=== PATIENT | male | born 1970 | race Caucasian/White ===

== ENCOUNTER 2017-03-17 15:15 | Emergency (ER) | payer OTHER ==
--- NOTE | 2017-03-17 15:29 | EDPHY ---
H & P Time Seen by Provider: 03/17/17 15:25 HPI/ROS: CHIEF COMPLAINT: Confusion HISTORY OF PRESENT ILLNESS: Patient is a 46-year-old male with history of traumatic brain injury and epilepsy who presents emergency department with confusion. Per EMS the patient was found in the parking lot at his work confused. There is no witnessed seizure activity. No witnessed or reported trauma. Patient states the patient is improved at this time and has no complaints. Patient states he has a history of petit mal seizures. This is a typical presentation for his seizures. He has been taking his medication, carbamazepine , regularly. He has no complaints at this time. No headache or neck pain. No reported trauma. Patient denies feeling confused. No recent illness REVIEW OF SYSTEMS: My complete review of systems is negative except as mentioned in the HPI. Past Medical/Surgical History: Includes traumatic brain injury, epilepsy Social History: Patient denies drugs or alcohol. Physical Exam: Vitals noted GENERAL: Well-appearing, in no acute distress, alert. HEAD: No evidence of trauma. EYES: PERRLA, EOMI, normal to inspection. ENT: Airway intact, no dental or oral injury, no malocclusion, no hemotympanum , normal external examination. NECK: The trachea is midline. There is no crepitus. The C-spine is nontender. NEXUS criteria is negative (no midline tenderness, no distracting injury, no altered mental status, no recent alcohol use, no focal neurologic deficit). RESPIRATORY: Clear to auscultation bilaterally, no rales, rhonchi or wheezing. There is no crepitus or palpable rib fractures. CVS: Regular rate and rhythm, no rubs, murmurs, or gallops. ABDOMEN: Soft, nontender, nondistended, normal bowel sounds, no bruising or abrasions. Pelvis: Stable. No tenderness palpation. Hips full range of motion. BACK: Normal to inspection, no spinal tenderness, no spinal step off, no notable bruising or abrasions. SKIN: Normal color, warm, dry. No pallor or diaphoresis. EXTREMITIES: Right upper extremity: Atraumatic. No visible signs of trauma. No tenderness palpation. Neurovascular intact distally. Left upper extremity: Atraumatic. No visible signs of trauma. No tenderness palpation. Neurovascular intact distally. Right lower extremity: Atraumatic. No visible signs of trauma. No tenderness palpation. Neurovascular intact distally. Left lower extremity: Atraumatic. No visible signs of trauma. No tenderness palpation. Neurovascular intact distally. Atraumatic, neurovascularly intact distally in all extremities, pelvis is stable , hips with full range of motion, moves all extremities freely. NEURO/PSYCH: Higher functions: Alert and Oriented x3. Normal speech and cognition. Normal mood and affect. Cranial nerves: Normal as tested. Cerebellar: Normal as tested. Good finger to nose, good [id number], normal gait. Peripheral exam: Normal motor exam. Normal sensation. Normal reflexes. Constitutional: Initial Vital Signs Temperature (C) 36.8 C 03/17/17 15:30 Heart Rate 72 03/17/17 15:30 Respiratory Rate 14 03/17/17 15:30 Blood Pressure 117/73 03/17/17 15:30 O2 Sat (%) 96 03/17/17 15:30 O2 Delivery Mode Room Air Allergies/Adverse Reactions: No Known Allergies Allergy (Unverified 03/17/17 15:29) Home Medications: Medication Instructions Recorded Keppra 03/17/17 Tegretol 03/17/17 Medical Decision Making ED Course/Re-evaluation: I met EMS on arrival in took report from the radiologic technology instructor. The patient had normal blood glucose. The patient has no complaints at this time. Patient is alert and oriented. Plan was to observe in the emergency department. I do not feel he needs imaging or laboratory studies at the time of his arrival. 1545: Patient had a petite mal type seizure in the emergency department. Nursing staff witnessed a seizure in stated the patient "froze." I went rechecked the patient immediately. When I arrived in the room the patient was no longer seizing. He did seem slightly confused. I discussed the case with Dr. Burger who taken report from Dr. Ibarra. Per Dr. Ibarra the patient has recently decreased his Keppra (to 500 mg twice daily) and Tegretol (to 200 mg in the morning and 40 mg in the evening). His recommendation to Dr. Burger was if stable increase his Keppra to 1000 mg twice daily and increase his Tegretol to 400 mg twice daily. Because the patient had a witnessed seizure in the emergency department he was loaded with Keppra 1000 mg IV. I discussed this plan with the patient. Laboratory studies were ordered. I reviewed the patient's laboratory studies. His chemistry panel and CBC were unremarkable. His carbamazepine level was 9.5. I discussed the case with Dr. Sánchez Ibarra. He recommended the increase in medication and agrees with the plan for discharge. 174: Rechecked the patient on numerous occasions. He did well during his stay. I discussed the plan to increase his Tegretol and Keppra. Patient understood. He had no further seizure activity or complaints. He had a normal neuro exam prior to leaving. He is given warnings prior to leaving. He will return with worsening symptoms. Differential Diagnosis: My differential includes but is not limited to epilepsy, trauma, subarachnoid hemorrhage, subdural hematoma, epidural hematoma, CVA, electrolyte abnormality, sugar abnormality, intoxication, drug use - Data Points Laboratory Results: Laboratory Results 03/17/17 15:00 03/17/17 15:00 03/17/17 03/17/17 03/17/17 15:00 15:00 15:00 WBC 5.01 10^3/uL 10^3/uL (3.80-9.50) RBC 4.77 10^6/uL 10^6/uL (4.40-6.38) Hgb 15.6 g/dL g/dL (13.7-17.5) Hct 44.3 % % (40.0-51.0) MCV 92.9 fL fL (81.5-99.8) MCH 32.7 pg pg (27.9-34.1) MCHC 35.2 g/dL g/dL (32.4-36.7) RDW 12.0 % % (11.5-15.2) Plt Count 224 10^3/uL 10^3/uL (150-400) MPV 10.4 fL fL (8.7-11.7) Neut % (Auto) 63.9 % % (39.3-74.2) Lymph % (Auto) 27.1 % % (15.0-45.0) [place] % (Auto) 7.8 % % (4.5-13.0) Eos % (Auto) 0.4 % L % (0.6-7.6) Baso % (Auto) 0.6 % % (0.3-1.7) Nucleat RBC Rel Count 0.0 % % (0.0-0.2) Absolute Neuts (auto) 3.20 10^3/uL 10^3/uL (1.70-6.50) Absolute Lymphs (auto) 1.36 10^3/uL 10^3/uL (1.00-3.00) Absolute Monos (auto) 0.39 10^3/uL 10^3/uL (0.30-0.80) Absolute Eos (auto) 0.02 10^3/uL L 10^3/uL (0.03-0.40) Absolute Basos (auto) 0.03 10^3/uL 10^3/uL (0.02-0.10) Absolute Nucleated RBC 0.00 10^3/uL 10^3/uL (0-0.01) Immature Gran % 0.2 % % (0.0-1.1) Immature Gran # 0.01 10^3/uL 10^3/uL (0.00-0.10) PT 14.2 SEC SEC (12.0-15.0) INR 1.11 (0.83-1.16) APTT 25.8 SEC SEC (23.0-38.0) Sodium 137 mEq/L mEq/L (134-144) Potassium 4.4 mEq/L mEq/L (3.5-5.2) Chloride 101 mEq/L mEq/L (97-110) Carbon Dioxide 25 mEq/l mEq/l (22-31) Anion Gap 11 mEq/L mEq/L (8-16) BUN 11 mg/dL mg/dL (7-23) Creatinine 0.8 mg/dL mg/dL (0.7-1.3) Estimated GFR > 60 Glucose 128 mg/dL H mg/dL (70-100) Calcium 9.4 mg/dL mg/dL (8.5-10.4) Carbamazepine 9.5 ug/mL ug/mL (4.0-12.0) Medications Given: Discontinued Medications Levetiracetam 1,000 mg/ Sodium (Chloride) 110 mls @ 440 mls/hr IV EDNOW ONE Stop: 03/17/17 16:06 Last Admin: 03/17/17 16:24 Dose: 110 mls Departure - Departure Disposition: Home, Routine, Self-Care Clinical Impression: Epilepsy Qualifiers: Epilepsy type: unspecified Intractability: not intractable Status epilepticus: without status epilepticus Qualified Code(s): G40.909 - Epilepsy, unspecified, not intractable, without status epilepticus Altered mental status Qualifiers: Altered mental status type: disorientation Qualified Code(s): R41.0 - Disorientation, unspecified Condition: Good Instructions: Epilepsy (ED) Additional Instructions: Dr. Sánchez Ibarra recommended that you change the dosing of your medication. He recommend you take Keppra 1000 mg twice daily. He also recommends that you take Tegretol 400 mg twice daily. You need close follow-up with Dr. Sánchez Ibarra. Call to make an appointment. Return with a headache, weakness, numbness, visual change, fever or any other concerns. Follow up with your neurologist and primary care physician. Referrals: Sánchez Ibarra MD [Medical Doctor] - 5-7 days, if not improved
[2017-03-17] MEDS ORDERED: LORazepam 2 MG/ML INJ ONE (15:50)
[2017-03-17] MEDS ORDERED: levETIRAcetam 1,000 MG in NS 100 ML IV ONE (15:52)
[2017-03-17 16:03] LABS: % IMMATURE GRANULYOCYTES 0.2 % (0.0-1.1); ABSOLUTE IMMATURE GRANULOCYTES 0.01 10^3/uL (0.00-0.10); ADD DIFF? NO; ADD MORPH? NO; ADD SCAN? NO; ATYPICAL LYMPHOCYTE FLAG 0 (0-99); FRAGMENT RBC FLAG 0 (0-99); HEMATOCRIT 44.3 % (40.0-51.0); HEMOGLOBIN 15.6 g/dL (13.7-17.5); LEFT SHIFT FLG 0 (0-99); LIPEMIA HEMOLYSIS FLAG 90 (0-99); MEAN CELL HEMOGLOBIN 32.7 pg (27.9-34.1); MEAN CELL HEMOGLOBIN CONCENTR. 35.2 g/dL (32.4-36.7); MEAN CELL VOLUME 92.9 fL (81.5-99.8); MEAN PLATELET VOLUME 10.4 fL (8.7-11.7); PLATELET CLUMPS FLAG 0 (0-99); PLATELET COUNT 224 10^3/uL (150-400); RED BLOOD CELL COUNT 4.77 10^6/uL (4.40-6.38)
[2017-03-17 16:10] LABS: INR 1.11 (0.83-1.16); PROTIME(PATIENT) 14.2 SEC (12.0-15.0)
[2017-03-17 16:11] LABS: APTT 25.8 SEC (23.0-38.0)
[2017-03-17 16:15] LABS: ANION GAP 11 mEq/L (8-16); CALCIUM 9.4 mg/dL (8.5-10.4); CARBON DIOXIDE 25 mEq/l (22-31); CHLORIDE 101 mEq/L (97-110); CREATININE 0.8 mg/dL (0.7-1.3); GLOMERULAR FILTRATION RATE > 60; GLUCOSE 128 mg/dL (70-100); POTASSIUM 4.4 mEq/L (3.5-5.2); SODIUM 137 mEq/L (134-144); TEGRETOL (CARBAMAZEPINE) 9.5 ug/mL (4.0-12.0)
[2017-03-17 16:41] VITALS: RESP 16
[2017-03-17 17:59] VITALS: BP 108/68; PULSE 69; TEMP 99.1; O2SAT 98
== END 2017-03-17 17:58 | disposition home or self-care (01) ==
LOC: EDUNIT#
DX: R41.0 Disorientation, unspecified (principal); G40.909 Epilepsy, unspecified, not intractable, without status epilepticus
CPT/HCPCS: 96365; J1953; J2060